=== PATIENT | female | born 1965 | race Caucasian/White ===

== ENCOUNTER 2017-07-07 14:22 | Emergency (ER) | payer BC, MEDICAID ==
[2017-07-07 14:32] VITALS: BP 137/113
--- NOTE | 2017-07-07 15:52 | EDM.PDOC ---
<Consuelo Glass - Last Filed: 07/07/17 18:46> ED HPI GENERAL MEDICAL PROBLEM - General Chief Complaint: ENT Problem Stated Complaint: JAW PAIN Time Seen by Provider: 07/07/17 15:00 Source of Information: Reports: Patient History Limitations: Reports: No Limitations - History of Present Illness INITIAL COMMENTS - FREE TEXT/NARRATIVE: Patient is a 51 YO female who presents today with jaw pain. 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 She has been told it is because she has no back teeth. She believes it has been dislocated for about 3 weeks. She is able to talk, eat and open her mouth. She states she is not able to open it all the way and is not able to move the mandible to the left. She states it is the right TMJ that is causing pain and is causing her right sided headaches and ear pain. She states last time this happened she was able to open her mouth but when they took x-rays it showed a dislocation of the right TMJ. She states she was then "put under" in order to relocate the mandible. She denies fever, vision changes, nausea, vomiting. Oral/Mouth Pain Score (Numeric/FACES): 7 - Related Data Allergies Allergy/AdvReac Type Severity Reaction Status Date / Time latex Allergy Facial Verified 07/07/17 14:33 Swelling No Known Drug Allergies Allergy Other Verified 07/07/17 14:33 Home Meds: Home Meds ALPRAZolam [Xanax] 1 mg PO DAILY PRN 04/11/13 [History] Gabapentin [Neurontin] 600 mg PO BID 04/11/13 [History] Zolpidem Tartrate [Ambien] 5 mg PO BEDTIME PRN 04/11/13 [History] lamoTRIgine [Lamotrigine] 1 tab PO BID 05/10/14 [History] Past Medical History Gastrointestinal History: Reports: Celiac Disease Musculoskeletal History: Reports: Fibromyalgia Neurological History: Reports: Headaches, Chronic Psychiatric History: Reports: Bipolar - Past Surgical History GI Surgical History: Reports: Appendectomy, Other (See Below) Other GI Surgeries/Procedures: hemorrhoidectomy Female Surgical History: Reports: D&C, Hysterectomy Social & Family History - Tobacco Use Smoking Status *Q: Current Every Day Smoker Years of Tobacco use: 30 Packs/Tins Daily: 0.5 Used Tobacco, but Quit: No Second Hand Smoke Exposure: No - Caffeine Use Caffeine Use: Reports: Coffee - Alcohol Use Days Per Week of Alcohol Use: 0 - Recreational Drug Use Recreational Drug Use: No ED ROS ENT - Review of Systems Review Of Systems: See Below Constitutional: Reports: No Symptoms HEENT: Reports: Ear Pain (right), Other (right TMJ pain) Respiratory: Reports: No Symptoms Cardiovascular: Reports: No Symptoms Skin: Reports: No Symptoms Neurological: Reports: Headache (mild right sided headache behind ear) ED EXAM, ENT - Physical Exam Exam: See Below Exam Limited By: No Limitations General Appearance: Alert, WD/WN, No Apparent Distress Ears: Normal External Exam, Normal TMs Mouth/Throat: Normal Inspection, Normal Lips, Normal Oropharynx, Other (from inspection jaw appear to be even and symmetrical. Right TMJ mildly tender but does not feel to be dislocated. Patient is able to open jaw about 1/2 way and able to close and bight down with full strength. ) Head: Atraumatic, Normocephalic Respiratory/Chest: No Respiratory Distress, Lungs Clear, Normal Breath Sounds Cardiovascular: Regular Rate, Rhythm, No Murmur Neurological: Alert, Oriented, CN II-XII Intact, Normal Cognition, No Motor/ Sensory Deficits Psychiatric: Normal Affect, Normal Mood Skin: Warm, Dry, Intact, Normal Color, No Rash Course - Vital Signs Last Recorded V/S: Last Vital Signs Temp 36.6 C 07/07/17 14:30 Pulse 108 H 07/07/17 14:30 Resp 16 07/07/17 14:30 BP 137/113 H 07/07/17 14:30 Pulse Ox 100 07/07/17 14:30 - Re-Assessments/Exams Free Text/Narrative Re-Assessment/Exam: 07/07/17 15:40 Mandible x-ray has been ordered. At this time, I do not feel like the mandible is dislocated. From exam it feels to be intact and in appropriate positioning. 07/07/17 1610 X-ray showed no abnormality. Discussed this finding with the patient and patient is convinced that the mandible is dislocated. CT will be ordered to r/o dislocation. 07/07/[address] showed: chronic sinusitis. mild nasal septal deviation. mild joint space narrowing compatible with degenerative change is seen within the temporomandibular joints. This was discussed with the patient. It was explained that there is no dislocation seen so manipulation of the jaw could cause damage. Recommended she follow up with ENT or maxofacial surgeon for further evaluation. Patient is unhappy with these findings and recommendations and has chosen to walk out of the ER without her discharge paperwork. Departure - Departure Disposition: Home, Self-Care 01 Clinical Impression: Chronic jaw pain - Discharge Information Referrals: PCP,None [Primary Care Provider] - Rafaela Bagley MD [Physician] - Forms: ED Department Discharge Additional Instructions: Continue with your current plan of care. Recommend establishing care with a primary care provider here in [place]. Recommend Dr. Bagley at the [facility]. Call [phone] to schedule with her. Recommend follow-up with a maxillofacial surgeon for your chronic jaw pain. Please return to the ER for symptoms change or worsen. <ChasidyLili F - Last Filed: 07/08/17 21:23> ED HPI GENERAL MEDICAL PROBLEM - History of Present Illness INITIAL COMMENTS - FREE TEXT/NARRATIVE: I have seen the patient and agree with the HPI as documented by JOSE G Boles. Course - Radiology Interpretation Free Text/Narrative:: Mandible: 4 views of the mandible were obtained. No bony erosions are seen. No fracture or other abnormality is appreciated. Impression: 1. No abnormality is seen on mandible study. CT facial bones Technique: Multiple axial sections through the facial bones were obtained. Reconstructed coronal and sagittal images were reviewed. Findings: Moderate mucosal thickening is seen within both maxillary sinuses. Mucosal thickening is seen within the sphenoid sinus and within the ethmoid sinuses. No air-fluid levels are seen and findings most likely due to chronic sinusitis. Right and left globes are symmetric. Mild nasal septal deviation is incidentally noted. Mild joint space narrowing is seen within both temporomandibular joints compatible with mild degenerative change. Temporomandibular joints appear normal in alignment. No acute facial bone abnormality is seen. Impression: 1. Findings of chronic sinusitis as described above. Mild nasal septal deviation is seen. 2. Mild joint space narrowing compatible with degenerative change is seen within the temporomandibular joints. 3. No additional abnormality is identified on CT study of the facial bones. - Re-Assessments/Exams Free Text/Narrative Re-Assessment/Exam: 07/07/17 17:41 I've seen the patient and agree with the history of present illness, review of systems and physical exam as documented by JOSE G Boles I asked Dr. Gibbs to see the patient as the patient was very upset with our findings on physical exam. Her x-ray does not show any abnormalities. They decided to proceed with a CT. I reviewed the CT results with the patient. There is no need to give her any ketamine tonight to relocate her jaw as she is requesting. She is very upset by this and leaves prior to discharge instructions. Departure - Departure Time of Disposition: 17:45 Condition: Fair
--- NOTE | 2017-07-07 16:11 | CR ---
Mandible: 4 views of the mandible were obtained. No bony erosions are seen. No fracture or other abnormality is appreciated. Impression: 1. No abnormality is seen on mandible study. Diagnostic code #2
--- NOTE | 2017-07-07 17:05 | CT ---
CT facial bones Technique: Multiple axial sections through the facial bones were obtained. Reconstructed coronal and sagittal images were reviewed. Findings: Moderate mucosal thickening is seen within both maxillary sinuses. Mucosal thickening is seen within the sphenoid sinus and within the ethmoid sinuses. No air-fluid levels are seen and findings most likely due to chronic sinusitis. Right and left globes are symmetric. Mild nasal septal deviation is incidentally noted. Mild joint space narrowing is seen within both temporomandibular joints compatible with mild degenerative change. Temporomandibular joints appear normal in alignment. No acute facial bone abnormality is seen. Impression: 1. Findings of chronic sinusitis as described above. Mild nasal septal deviation is seen. 2. Mild joint space narrowing compatible with degenerative change is seen within the temporomandibular joints. 3. No additional abnormality is identified on CT study of the facial bones. Diagnostic code #3
== END 2017-07-07 18:30 | disposition home or self-care (01) ==
LOC: JD.ED 14:22
DX: R68.84 Jaw pain (principal); G89.29 Other chronic pain; F17.210 Nicotine dependence, cigarettes, uncomplicated; Z91.040 Latex allergy status; Z79.899 Other long term (current) drug therapy
CPT/HCPCS: 70110; 70110-26; 70486; 70486-26; 99284